=== PATIENT | male | born 1990 | race Caucasian/White ===

== ENCOUNTER 2023-09-02 15:25 | Emergency (ER) | payer OTHER ==
[~2023-09-02] VITALS: Ht 172.7 cm; Wt 68.5 kg
[2023-09-02] MEDS ORDERED: CIPR7.5D9 RIGHT EAR (16:06)
[2023-09-02 16:24] VITALS: BP 134/87; TEMP 98.4; O2SAT 100
== END 2023-09-02 16:24 | disposition home or self-care (01) ==
LOC: ER 15:25
DX: S09.8XXA Other specified injuries of head, initial encounter (principal); X58.XXXA Exposure to other specified factors, initial encounter; Y93.89 Activity, other specified; Y92.89 Other specified places as the place of occurrence of the external cause; Y99.8 Other external cause status